=== PATIENT | female | born 1990 | race Caucasian/White ===

== ENCOUNTER → 2022-03-22 | Outpatient (CLI) | payer OTHER ==
[2022-03-22 20:43] LABS: T4, Free (Free Thyroxine) 1.22 ng/dL (0.800-1.800)
== END | disposition home or self-care (01) ==
LOC: LABWHC1 11:36
PROVIDERS: ATTEND Internal Medicine Endocrinology, Diabetes & Metabolism
DX: E03.8 Other specified hypothyroidism (principal)
CPT/HCPCS: 36415; 84439; 84443; 84480

== ENCOUNTER 2022-09-13 17:35 | Inpatient (IN) | payer OTHER ==
[2022-09-13] MEDS ORDERED: TERBUTALINE 1 MG/ML VIAL SQ PRN (17:48)
[2022-09-13] MEDS ORDERED: LIDOCAINE 0.5% (PF) 5 MG/ML (50 ML SDV) SQ PRN (17:48)
[2022-09-13] MEDS: LACTATED RINGERS 1,000 ML IV SCH (18:17)
[2022-09-13 18:20] LABS: Basophils # (A) 0.1 k/uL (0-0.2); Basophils % (A) 0 %; Eosinophils # (A) 0.2 k/uL (0-0.7); Eosinophils % (A) 1 %; HCT 41.5 % (34.0-46.0); HGB 14.2 gm/dL (11.4-16.0); Lymphocytes # (A) 1.9 k/uL (1.0-4.8); Lymphocytes % (A) 13 %; MCH 28.9 pg (25.0-35.0); MCHC 34.3 g/dL (31.0-37.0); MCV 84.4 fL (80.0-100.0); Mean Platelet Volume 7.6; Monocytes # (A) 0.8 k/uL (0-1.0); Monocytes % (A) 5 %; Neutrophils # (A) 11.2 k/uL (1.3-7.7); Neutrophils % (A) 78 %; Platelet Count 247 k/uL (150-450); RBC 4.91 m/uL (3.80-5.40); RDW 14.8 % (11.5-15.5); WBC 14.4 k/uL (3.8-10.6)
[2022-09-13] MEDS ORDERED: LANOLIN CREAM 5 GM TUBE TOPICAL PRN (18:57)
[2022-09-13] MEDS ORDERED: SIMETHICONE 80 MG CHEWABLE PO PRN (18:57)
[2022-09-13] MEDS ORDERED: diphenhydrAMINE 25 MG CAP PO PRN (18:57)
[2022-09-13] MEDS ORDERED: HYDROCORTISONE 2.5% RECTAL CREAM 30 GM TUBE RECTAL PRN (18:57)
[2022-09-13] MEDS ORDERED: ACETAMINOPHEN TAB 325 MG TAB PO PRN (18:57)
[2022-09-13] MEDS ORDERED: ZOLPIDEM 5 MG TAB PO PRN (18:57)
[2022-09-13] MEDS ORDERED: diphenhydrAMINE 50 MG/ML 1 ML VIAL IVP PRN ×2 (18:57)
[2022-09-13] MEDS ORDERED: diphenhydrAMINE 50 MG CAP PO PRN (18:57)
[2022-09-13] MEDS ORDERED: METHYLERGONOVINE 0.2 MG/ML 1 ML AMP IM ONE (18:57)
[2022-09-13] MEDS ORDERED: BENZOCAINE/MENTHOL SPRAY 1 GM/SPRAY AEROSOL TOPICAL PRN (18:57)
[2022-09-13] MEDS: OXYTOCIN 30 UNITS/500 ML NS 30 UNIT in SALINE 1 500ML.BAG IV SCH ×2 (19:07→20:23)
--- NOTE | 2022-09-13 19:11 | P.HPOB ---
History of Present Illness H&P Date: 09/13/22 Chief Complaint: Labor Ms. Lilly is a 32 year old at 40 weeks and 2 days with EDC of 09/13/2022 who presents to triage with regular uterine contractions and rectal pressure. was complicated by an elevated 1 hour GTT 141. The patient was not able to do a 3 hour GTT, therefore she checked her blood glucose levels 4 times daily and over a period of 2 weeks all readings were normal. Obstetric history is significant for 1 full term section for failure to progress, 2 full term vaginal delivery with the second also complicated by an elevated 1 hour GTT reading. She has two early SABs requiring d&c. Maternal serologies: blood type A positive, antibody screen negative, VDRL non- reactive, rubella immune, HBsAg negative, HIV negative, Hep C Ab negative, GBS negative. Past Medical History Past Medical History: Thyroid Disorder History of Any Multi-Drug Resistant Organisms: None Reported Smoking Status: Never smoker Medications and Allergies Home Medications Medication Instructions Recorded Confirmed Type Iron 18 mg PO DAILY 09/13/22 09/13/22 History Levothyroxine Sodium 88 mcg PO DAILY 09/13/22 09/13/22 History Vit No.179/Iron/Folic 1 each PO DAILY 09/13/22 09/13/22 History [ Tablet] Allergies Allergy/AdvReac Type Severity Reaction Status Date / Time No Known Allergies Allergy Verified 09/13/22 17:41 Exam Vital Signs Temp Pulse Resp BP 09/13/22 18:45 97.8 F 93 16 131/71 Intake and Output 09/13/22 09/13/22 09/13/22 06:59 14:59 22:59 Other: Weight 69.853 kg Focused physical exam is performed. This is a healthy-appearing breathing through contractions. Cervical exam reveals complete dilation with bulging bag of water at minus 1 station. Results Result Diagrams: 09/13/22 18:10 Abnormal Lab Results - Last 24 Hours (Table) 09/13/22 Range/Units 18:10 WBC 14.4 H (3.8-10.6) k/uL Neutrophils # 11.2 H (1.3-7.7) k/uL Assessment and Plan Assessment: 32 year old at 40 weeks and 2 days in active labor Plan: - Expectant management - NPO - maintenance IVF - Continuous monitoring Time with Patient: Greater than 30
--- NOTE | 2022-09-13 19:16 | P.PROBDLV ---
Vaginal Delivery Note - . Vaginal Delivery Note: DATE OF SERVICE: 09/13/2022 PROCEDURE: Spontaneous Vaginal Delivery ATTENDING: Dr. Heidi Mccollum MD QUANTITATIVE BLOOD LOSS: 560 mL FINDINGS: VFI, Apgars 05/12 PROCEDURE: Patient is a 32 y/o who presented to labor and delivery in active labor. Patient quickly progressed to complete dilation at 1836. Head delivered without difficulty followed by shoulders and body over intact perineum. Infant placed on maternal abdomen and bulb suctioned. Cord was clamped and cut after a 60 second delay. Placenta delivered whole with gentle cord traction. Oxytocin was started to facilitate uterine tone. Uterine fundus firm, however bleeding was moderate. Bimanual exam was performed to evacuate cervical clots. A dose of IM Methergine 0.2mg was also given at this time. Perineal inspection revealed a small first degree laceration that was repaired with 3-0 P olysorb in the usual fashion. Patient stable .
[2022-09-13] MEDS ORDERED: miSOPROStoL 200 MCG TAB RECTAL STA (19:24)
[2022-09-13] MEDS: IBUPROFEN 600 MG TAB PO PRN (19:30)
[2022-09-13] MEDS: SENNOSIDES-DOCUSATE SODIUM 1 EACH TAB PO SCH (19:31)
[2022-09-13] MEDS ORDERED: BUTORPHANOL 1 MG/ML 1 ML VIAL IV PRN (19:50)
[2022-09-14] MEDS: LACTATED RINGERS 1,000 ML IV SCH (03:36)
[2022-09-14] MEDS: IBUPROFEN 600 MG TAB PO PRN ×2 (05:16→12:30)
--- NOTE | 2022-09-14 06:12 | P.PNOBGVD ---
Subjective - Subjective Principal diagnosis: Normal Spontaneous Vaginal Delivery Interval history: The patient is doing well this morning and had no acute events overnight. She has no complaints this morning. She reports minimal lochia, passing flatus, voiding without difficulty, ambulating, and eating/drinking without nausea or vomiting. She is her without difficulty. She denies chest pain, shortness of breathing, fevers, or chills overnight. She denies pain or s welling in the legs. She has no lightheadedness while walking around or showering. Patient reports: Reports appetite normal, Reports voiding normally, Reports pain well controlled, Reports ambulating normally : doing well, nursing well Objective - Latest Vital Signs Latest vital signs: Vital Signs Temp Pulse Resp BP Pulse Ox 09/14/22 04:30 98.4 F 83 14 105/67 97 09/14/22 00:30 97.8 F 104 H 18 148/69 09/13/22 22:16 78 16 134/61 09/13/22 21:00 79 14 98/49 09/13/22 20:31 74 18 116/59 09/13/22 20:00 98.2 F 80 18 114/75 09/13/22 19:45 87 14 113/73 09/13/22 19:30 97.2 F L 86 16 102/68 09/13/22 19:15 89 14 126/74 09/13/22 19:00 89 16 126/74 09/13/22 18:45 97.8 F 93 16 131/71 Intake and Output 09/13/22 09/13/22 09/14/22 14:59 22:59 06:59 Intake Total 423.067 500 Output Total 1030 330 Balance -606.933 170 Intake: IV 500 Invasive Line 1 500 Intake, IV Titration 423.067 Amount Oxytocin 30 Units/500 ml 423.067 Ns 30 unit In Saline 1 500ml.bag @ Per Protocol IV .Q0M [facility] Rx#:[id number] Output: Output, Quantitative 1030 330 Blood Loss Other: # Voids 150 2 Weight 69.853 kg - Exam Extremities: Present: normal Abdomen: Present: normal appearance, soft Uterus: Present: normal, firm - Labs Labs: Abnormal Lab Results - Last 24 Hours (Table) 09/13/22 Range/Units 18:10 WBC 14.4 H (3.8-10.6) k/uL Neutrophils # 11.2 H (1.3-7.7) k/uL Assessment and Plan Assessment: 32 year old day #1 s/p of 40 week female infant, complicated by hemorrhage Plan: 1. - patient is meeting all milestones appropriately 2. Acute Blood Loss Anemia - patient had hemorrhage of 1500 mL 2/2 atony that was treated with oxytocin, 0.2 of methergine, and 1000 mg of rectal cytotec. Patient is now stable and bleeding is light. Await AM CBC. Vitals have been stable and patient denies any lightheadedness. 3. Female - doing well at bedside, nursing well Dispo: Anticipate discharge home this evening if baby is cleared for discharge by peds and if Hgb stable this AM. Discussed 6 weeks of pelvic rest at the time of discharge. Will discharge home with Tylenol and Motrin.
--- NOTE | 2022-09-14 06:22 | P.DS ---
Providers Date of admission: 09/13/22 17:49 Expected date of discharge: 09/14/22 Attending physician: Heidi Mccollum MD Primary care physician: Stated None Hospital Course: This is a 32 year old day 1 s/p . She came in actively laboring and quickly progressed to complete dilation. SROM occurred and she effectively delivered a female . She suffered a hemorrhage of 1500 mL that required oxytocin, 1000mg of rectal cytotec, and 0.2 of IM methergine. This along with bimanual massage resolved the bleeding. This morning she is doing well and meeting all postoperative milestones. She is ambulating well without lightheadedness and all vital signs are stable. She is eating and drinking without nausea or vomiting. She is without difficulty. She is voiding without difficulty. She desires discharge home today at 24 hours . I discussed the important of 6 weeks of pelvic rest with the patient. She will follow up in the office in 6 weeks for appointment. Assessment: 32 yo day s/p complicated by hemorrhage 2/2 to atony that is now stable Plan - Discharge Summary Discharge Rx Participant: No New Discharge Prescriptions: New Ibuprofen [Motrin] 600 mg PO Q6HR PRN #30 tab PRN Reason: Mild Pain (Scale 1 To 3) Acetaminophen Tab [Tylenol] 650 mg PO Q6H PRN #30 tab PRN Reason: Mild Pain (Scale 1 To 3) No Action Levothyroxine Sodium 88 mcg PO DAILY Vit No.179/Iron/Folic [ Tablet] 1 each PO DAILY Iron 18 mg PO DAILY Discharge Medication List Iron 18 mg PO DAILY 09/13/22 [History] Levothyroxine Sodium 88 mcg PO DAILY 09/13/22 [History] Vit No.179/Iron/Folic [ Tablet] 1 each PO DAILY 09/13/22 [History] Acetaminophen Tab [Tylenol] 650 mg PO Q6H PRN #30 tab 09/14/22 [Rx] Ibuprofen [Motrin] 600 mg PO Q6HR PRN #30 tab 09/14/22 [Rx] Follow up Appointment(s)/Referral(s): Heidi Mccollum MD [STAFF PHYSICIAN] - 1 Week Patient Instructions/Handouts: Your Baby (DC), Expression, Collection and Storage of Breast Milk (DC), How to Increase Your Milk Supply (DC), How to Tell if Your Baby is Getting Enough Breast Milk (DC), Depression (DC), Caring for Your Baby (DC), Vaginal Delivery (DC), Bleeding (DC), Hemorrhage (DC) Activity/Diet/Wound Care/Special Instructions: Pelvic rest for 6 weeks. Otherwise activity as tolerated. Discharge Disposition: HOME SELF-CARE
[2022-09-14 07:09] LABS: Basophils % (A) 0 %; Eosinophils # (A) 0.2 k/uL (0-0.7); Eosinophils % (A) 1 %; HCT 32.1 % (34.0-46.0); Lymphocytes # (A) 2.5 k/uL (1.0-4.8); Lymphocytes % (A) 16 %; MCH 29.1 pg (25.0-35.0); MCHC 33.5 g/dL (31.0-37.0); Mean Platelet Volume 7.8; Monocytes # (A) 0.8 k/uL (0-1.0); Monocytes % (A) 5 %; Neutrophils # (A) 11.6 k/uL (1.3-7.7); Neutrophils % (A) 74 %; Platelet Count 232 k/uL (150-450); RBC 3.69 m/uL (3.80-5.40); RDW 15.6 % (11.5-15.5); WBC 15.6 k/uL (3.8-10.6)
[2022-09-14 07:11] LABS: HGB 10.7 gm/dL (11.4-16.0)
[2022-09-14] MEDS: SENNOSIDES-DOCUSATE SODIUM 1 EACH TAB PO SCH (08:22)
[2022-09-14 08:32] VITALS: PULSE 84; RESP 16
[2022-09-14 16:07] VITALS: BP 101/65; TEMP 98.2
== END 2022-09-14 18:50 | disposition home or self-care (01) | DRG 768 ==
LOC: FBPOP 17:35 → 4FBP 17:49
PROVIDERS: ADMIT Obstetrics & Gynecology; ATTEND Obstetrics & Gynecology
PROC: 3E0DXGC Introduction of Other Therapeutic Substance into Mouth and Pharynx, External Approach (ICD-10-PCS; principal; 2022-09-13)
PROC: 3E033VJ Introduction of Other Hormone into Peripheral Vein, Percutaneous Approach (ICD-10-PCS; principal; 2022-09-13)
PROC: 0HQ9XZZ Repair Perineum Skin, External Approach (ICD-10-PCS; principal; 2022-09-13)
PROC: 0W3R7ZZ Control Bleeding in Genitourinary Tract, Via Natural or Artificial Opening (ICD-10-PCS; principal; 2022-09-13)
PROC: 10E0XZZ Delivery of Products of Conception, External Approach (ICD-10-PCS; principal; 2022-09-13)
DX: O62.0 Primary inadequate contractions (principal); Z37.0 Single live birth; D62 Acute posthemorrhagic anemia; O70.0 First degree perineal laceration during delivery; O72.1 Other immediate postpartum hemorrhage; O90.81 Anemia of the puerperium; O48.0 Post-term pregnancy; Z3A.40 40 weeks gestation of pregnancy; Z79.890 Hormone replacement therapy
CPT/HCPCS: 59025; 85025; 86850; 86900; 86901; 99213

== ENCOUNTER 2024-10-24 21:43 | Inpatient (IN) | payer OTHER ==
[2024-10-24] MEDS ORDERED: CARBOPROST TROMETHAMINE 250 MCG/ML 1 ML AMP IM PRN (22:12)
[2024-10-24] MEDS ORDERED: TERBUTALINE 1 MG/ML VIAL SQ PRN (22:12)
[2024-10-24] MEDS ORDERED: TRANEXAMIC 1,000 MG/100ML-NACL 1,000 MG in EMPTY BAG 1 BAG IV PRN (22:12)
[2024-10-24] MEDS ORDERED: miSOPROStoL 200 MCG TAB PO PRN (22:12)
[2024-10-24] MEDS ORDERED: OXYTOCIN 10 UNIT/ML 1 ML VIAL IM PRN (22:12)
[2024-10-24] MEDS ORDERED: miSOPROStoL 200 MCG TAB RECTAL PRN (22:12)
[2024-10-24 22:28] LABS: Basophils # (A) 0.1 k/uL (0-0.2); Basophils % (A) 0 %; Eosinophils # (A) 0.1 k/uL (0-0.7); Eosinophils % (A) 1 %; HCT 33.6 % (34.0-46.0); HGB 11.2 gm/dL (11.4-16.0); Lymphocytes # (A) 1.9 k/uL (1.0-4.8); Lymphocytes % (A) 16 %; MCH 25.6 pg (25.0-35.0); MCHC 33.3 g/dL (31.0-37.0); MCV 76.9 fL (80.0-100.0); Mean Platelet Volume 7.1; Monocytes # (A) 0.7 k/uL (0-1.0); Monocytes % (A) 6 %; Neutrophils # (A) 8.9 k/uL (1.3-7.7); Neutrophils % (A) 75 %; Platelet Count 332 k/uL (150-450); RBC 4.37 m/uL (3.80-5.40); RDW 14.1 % (11.5-15.5); WBC 11.9 k/uL (3.8-10.6)
--- NOTE | 2024-10-24 22:38 | P.HPOB ---
History of Present Illness H&P Date: 10/24/24 Chief Complaint: vaginal bleeding Ms. Lilly is a 34 year old at 39 weeks gestation with EDC of 10/31/24 by 9 week US who presents with vaginal bleeding. She is found to be in active labor, with regular contractions, cervix dilated to 6 centimeters, and positive amnisure for rupture. There is a maternal history of subclinical hypothyroidsim. The fetus was noted to have a suspected arrhythmia on anatomy US. The patient was then referred to [facility] for a ECHO, which was normal. The fetus is estimated to be in the 80%ile for weight based on a 32 week growth US. Obstetric history: 1 FTCS > 3 successful VBACs, last delivery with PPH work-up: blood type A positive, antibody screen negative, rubella immune, VDRL non-reactive, HBsAg negative, HIV declined, Hep C non-reactive, gonorrhea negative, chlamydia negative, GBS negative. 1 hour GTT declined, 2 weeks of BS wnl. Past Medical History Past Medical History: Thyroid Disorder History of Any Multi-Drug Resistant Organisms: None Reported Past Surgical History: Section Past Anesthesia/Blood Transfusion Reactions: No Reported Reaction Smoking Status: Never smoker - Past Family History Mother Family Medical History: No Reported History Medications and Allergies Allergies Allergy/AdvReac Type Severity Reaction Status Date / Time No Known Allergies Allergy Verified 10/24/24 21:46 Exam Intake and Output 10/24/24 10/24/24 10/24/24 06:59 14:59 22:59 Other: Weight 71.668 kg Focused physical exam is performed. This is a healthy-appearing in no apparent distress. Breathing is non-labored. Abdomen is gravid and non-tender. Cervical exam is 6 centimeters per OB RN. Fully saturated menstrual pad with blood noted on exam. Membranes ruptured. Extremities non-tender and non- edematous. heart tones are Category I and tocometer is graphing contractions every 2-4 minutes. Results Result Diagrams: 10/24/24 22:10 Abnormal Lab Results - Last 24 Hours (Table) 10/24/24 Range/Units 22:10 WBC 11.9 H (3.8-10.6) k/uL Hgb 11.2 L (11.4-16.0) gm/dL Hct 33.6 L (34.0-46.0) % MCV 76.9 L (80.0-100.0) fL Neutrophils # 8.9 H (1.3-7.7) k/uL Assessment and Plan Assessment: 34 year old at 39 weeks gestation in active labor Plan: Admit, clear liquid diet, expectant management, continuous EFM and tocometer. Anticipate vaginal delivery.
[2024-10-24 22:51] VITALS: RESP 16
[2024-10-24] MEDS: LACTATED RINGERS 1,000 ML IV SCH (22:51)
[2024-10-25] MEDS: LIDOCAINE 0.5% (PF) 5 MG/ML (50 ML SDV) SQ PRN (00:53)
[2024-10-25] MEDS ORDERED: BENZOCAINE/MENTHOL SPRAY 1 GM/SPRAY AEROSOL TOPICAL PRN ×2 (01:14→01:29)
[2024-10-25] MEDS ORDERED: diphenhydrAMINE 50 MG CAP PO PRN (01:14)
[2024-10-25] MEDS ORDERED: diphenhydrAMINE 25 MG CAP PO PRN (01:14)
[2024-10-25] MEDS ORDERED: HYDROCORTISONE 2.5% RECTAL CREAM 30 GM TUBE RECTAL PRN (01:14)
[2024-10-25] MEDS ORDERED: LANOLIN CREAM 1 GM TUBE TOPICAL PRN (01:14)
[2024-10-25] MEDS ORDERED: SIMETHICONE 80 MG CHEWABLE PO PRN (01:14)
[2024-10-25] MEDS ORDERED: ZOLPIDEM 5 MG TAB PO PRN (01:14)
[2024-10-25] MEDS ORDERED: diphenhydrAMINE 50 MG/ML 1 ML VIAL IVP PRN ×2 (01:14)
--- NOTE | 2024-10-25 01:14 | P.PROBDLV ---
Vaginal Delivery Note - . Vaginal Delivery Note: DATE OF SERVICE: 10/25/2024 PROCEDURE: Normal Vaginal Delivery ATTENDING: Dr. Heidi Mccollum MD ESTIMATED BLOOD LOSS: 300 mL FINDINGS: VMI, Apgars 9/9. Weight pending. PROCEDURE: Ms. Lilly is a 34 year old at 39 weeks presenting to labor and delivery in active labor. For further details about the , please review the admitting H&P. AROM was undertaken at 2044. The patient was completely dilated. She pushed effectively with category II FHTs. A viable male infant was delivered at 0041. The infant was placed on the maternal abdomen and bulb suctioned. The was noted to be spontaneously crying. Cord was clamped and cut after a 5-minute delay per patient request. The was handed off to the pediatric team. Placenta was delivered whole with gentle cord traction at 0051. Oxytocin was started to facilitate uterine tone. Uterine f undus was found to be firm and below the umbilicus upon fundal massage. Thorough examination of the cervix, vagina, periurethral area, and perineum revealed a small first degree perineal laceration. The area was infiltrated with lidocaine and repaired with 3-0 Vicryl in an interrupted fashion. The patient is stable and allowed to begin the bonding process.
[2024-10-25] MEDS: OXYTOCIN 30 UNITS/500 ML NS 30 UNIT in SALINE 1 500ML.BAG IV SCH (01:18)
[2024-10-25] MEDS: METHYLERGONOVINE 0.2 MG/ML 1 ML AMP IM PRN (02:19)
[2024-10-25] MEDS: SENNOSIDES-DOCUSATE SODIUM 1 EACH TAB PO SCH (08:20)
[2024-10-25] MEDS: ACETAMINOPHEN TAB 500 MG TAB PO SCH (20:04)
[2024-10-25] MEDS: IBUPROFEN 800 MG TAB PO SCH (20:05)
[2024-10-26 06:08] LABS: Basophils % (A) 0 %; Eosinophils # (A) 0.2 k/uL (0-0.7); Eosinophils % (A) 2 %; HCT 25.7 % (34.0-46.0); Hypochromasia Slight; Lymphocytes # (A) 2.3 k/uL (1.0-4.8); Lymphocytes % (A) 22 %; MCH 26.3 pg (25.0-35.0); MCHC 33.8 g/dL (31.0-37.0); MCV 77.7 fL (80.0-100.0); Mean Platelet Volume 7.9; Monocytes # (A) 0.5 k/uL (0-1.0); Monocytes % (A) 5 %; Neutrophils # (A) 7.5 k/uL (1.3-7.7); Neutrophils % (A) 69 %; Platelet Count 257 k/uL (150-450); RBC 3.31 m/uL (3.80-5.40); RDW 14.6 % (11.5-15.5); WBC 10.8 k/uL (3.8-10.6)
[2024-10-26 06:24] LABS: HGB 8.7 gm/dL (11.4-16.0)
[2024-10-26 08:48] VITALS: BP 110/71; PULSE 84; TEMP 98.3
--- NOTE | 2024-10-26 11:17 | P.DS ---
Providers Date of admission: 10/24/24 22:19 Expected date of discharge: 10/26/24 Attending physician: Heidi Mccollum MD Primary care physician: Stated None Hospital Course: 34 year old PPD#1 s/p . The patient is doing well this morning and had no acute events overnight. She has no complaints this morning. She reports minimal lochia, passing flatus, voiding without difficulty, ambulating, and eating/drinking without nausea or vomiting. Infant doing well at bedside. She denies chest pain, shortness of breathing, fevers, or chills overnight. She denies pain or swelling in the legs. restrictions are reviewed with the patient including pelvic rest for 6 weeks. The patient is encouraged to call the office if she experiences any heavy bleeding, foul-smelling discharge, breast complaints, or any if she has any other concerns. She will follow up in the office with in 6 weeks for exam. All questions are answered. Patient Condition at Discharge: Good Plan - Discharge Summary New Discharge Prescriptions: New Docusate [Colace] 100 mg PO BID PRN #60 capsule PRN Reason: Constipation Ferrous Sulfate [Iron (65 MG Elemental)] 325 mg PO DAILY #30 tab Discharge Medication List Docusate [Colace] 100 mg PO BID PRN #60 capsule 10/26/24 [Rx] Ferrous Sulfate [Iron (65 MG Elemental)] 325 mg PO DAILY #30 tab 10/26/24 [Rx] Follow up Appointment(s)/Referral(s): Heidi Mccollum MD [STAFF PHYSICIAN] - 6 Weeks Activity/Diet/Wound Care/Special Instructions: Instructions 1. Do not begin any exercise program for 3 weeks. 2. Do not resume sexual relations for 6 weeks or longer if uncomfortable. 3. You may take tub baths or showers at any time. 4. You may use tampons if desired after 6 weeks. 5. Keep any areas repaired with stitches clean and dry. 6. If you are not nursing, wear a good fitting, supportive bra during the day a nd limit fluid intake for at least 1 week to prevent breast engorgement. 7. Call the office, , within the next week to make appointment for your 6 week checkup if it has not already been made. 8. Report any of the following occurrences to the doctor promptly: a. Heavy, excessive bleeding b. Chills, fever c. Burning or frequency of urination d. Pain or redness and breasts if nursing e. Increasing pain or swelling of vulva (stitches). In addition to the above instructions, the following additional should be followed: 1. No heavy lifting or straining (exercising) until after 6 week checkup. 2. Keep abdominal incision clean and dry: You may wear a dressing if more comfortable. 3. Make office appointment for 2 weeks after delivery date. Discharge Disposition: HOME SELF-CARE
--- NOTE | 2024-10-26 13:03 | P.MSEPDOC ---
Presenting Problems - Arrival Data Date of Arrival on Unit: 10/24/24 Time of Arrival on Unit: 21:57 Mode of Transport: Ambulatory - Complaint OB-Reason for Admission/Chief Complaint: Vaginal Bleeding Medical History - Information : 7 Para: 4 Term: 4 : 0 Abortions: Spontaneous or Elective: 2 Number of Living Children: 4 - Gestational Age Gestational Age by BIBIANA (wks/days): 39 Weeks and 1 Days - History Complications: Prior Review of Systems - Review of Systems Constitutional: No problems Breast: No problems ENT: No problems Cardiovascular: No problems Respiratory: No problems Gastrointestinal: No problems Genitourinary: No problems Musculoskeletal: No problems Neurological: No problems Skin: No problems Vital Signs - Temperature Temperature: 98.3 F Temperature Source: Oral - Pulse Pulse Oximetery Pulse Rate: 84 Pulse Assessment Method: Automatic Cuff - Respirations Respiratory Rate: 16 Oxygen Delivery Method: Room Air - Blood Pressure Right Arm Blood Pressure: 110/71 Blood Pressure Mean: 84 Blood Pressure Source: Automatic Cuff Medical Screen Scoring - Cervical Exam Dilation (cm): 6 Effacement (%): 80 Station: -2 Membranes: Ruptured - Uterine Contractions Frequency From (mins): 2 Frequency To (mins): 4 Duration From (seconds): 60 Duration To (seconds): 80 Intensity: Strong Resting: Soft to palpation - Assessment - Baby A Baseline FHR: 135 Heart Rate - NICHD Category: Category I (Normal) NST: Reactive Physician Notification - Physician Notified Physician Notified Date: 10/24/24 Physician Notified Time: 21:57 Physician: Heidi Mccollum Maternal Triage Index - Maternal Triage Index Presenting for scheduled procedure w/no complaint: No - Stat/Priority 1 Stat Priority 1: No - Urgent/Priority 2 Urgent Priority 2: Yes Provider Notified: Heidi Mccollum Provider Notified Time: 21:57 Criteria Met for Priority 2: 39, 6cm, ruptured Disposition - Disposition OB Disposition: Admit Discharge Date: 10/26/24 Discharge Time: 12:55 I agree with the RN Medical Screening Exam: Yes Physician's MSE Comment: I have neither seen nor examined the patient Case reviewed; plan agreed upon as documented in EMR&OBIX.: Yes Diagnosis: ENCOUNTER FOR FULL-TERM UNCOMPLICATED DELIVERY
== END 2024-10-26 12:55 | disposition home or self-care (01) | DRG 807 ==
LOC: FBPOP 21:43 → 4FBP 22:19
PROVIDERS: ADMIT Obstetrics & Gynecology; ATTEND Obstetrics & Gynecology
PROC: 10E0XZZ Delivery of Products of Conception, External Approach (ICD-10-PCS; principal; 2024-10-25)
PROC: 0HQ9XZZ Repair Perineum Skin, External Approach (ICD-10-PCS; 2024-10-25)
PROC: 3E033VJ Introduction of Other Hormone into Peripheral Vein, Percutaneous Approach (ICD-10-PCS; 2024-10-25)
PROC: 10907ZC Drainage of Amniotic Fluid, Therapeutic from Products of Conception, Via Natural or Artificial Opening (ICD-10-PCS; 2024-10-25)
PROC: 4A1HXCZ Monitoring of Products of Conception, Cardiac Rate, External Approach (ICD-10-PCS; 2024-10-25)
DX: O34.219 Maternal care for unspecified type scar from previous cesarean delivery (principal); Z37.0 Single live birth; O70.0 First degree perineal laceration during delivery; O76 Abnormality in fetal heart rate and rhythm complicating labor and delivery; Z3A.39 39 weeks gestation of pregnancy
CPT/HCPCS: 85025; 86850; 86900; 86901; 99213